=== PATIENT | female | born 1980 | race African-American/Black ===

== ENCOUNTER 2019-02-04 02:14 | Emergency (ER) | payer MEDICAID ==
[~2019-02-04] VITALS: Ht 170.2 cm; Wt 79.5 kg
[~2019-02-04 02:14] MED LIST: NO HOME MEDICATIONS; PERCOCET
[2019-02-04 02:20] VITALS: TEMP 97.7
[2019-02-04] MEDS ORDERED: LANTUS100 U/ML SQ (02:56)
[2019-02-04] MEDS ORDERED: NOVOLOG FLEX100 U/ML SQ (02:58)
[2019-02-04 03:54] LABS: GRAN # 5.4 (1.4-6.5); GRAN % 86.2 % (42.2-75.2); HEMOGLOBIN 11.3 g/dl (12.5-16.0); LYMPH # 0.7 (1.2-3.4); LYMPH % 11.3 % (20.0-51.0); MEAN CELL VOLUME 77 fl (80.0-100.0); MEAN CORPUSCULAR HEMOGLOBIN 25 pg (27.0-31.0); MEAN CORPUSCULAR HGB CONC 32 g/dl (33.0-37.0); MEAN PLATELET VOLUME 10.6 fl (7.4-10.4); MONO # 0.1 (0.1-0.6); MONO % 2.3 % (1.7-9.3); PLATELET COUNT 253 K/mm3 (130-400); RED BLOOD COUNT 4.55 M/mm3 (4.10-5.30); REDCELL DISTRIBUTION WIDTH-CV 17.2 % (11.5-14.5)
[2019-02-04 03:55] LABS: HEMATOCRIT 34.9 % (37.0-47.0)
[2019-02-04 04:01] LABS: ALANINE AMINOTRANSFERASE 6 U/L (9-52); ALBUMIN 4.4 gm/dL (3.5-5.0); ALKALINE PHOSPHATASE 77 U/L (50-136); ANION GAP 9 mmol/L (7-16); AST,SGOT 28 U/L (15-37); BILIRUBIN,TOTAL 0.5 mg/dL (0.0-1.0); BLOOD UREA NITROGEN 4 mg/dL (7-17); C-REACTIVE PROTEIN 0.9 mg/dL (0.0-0.9); CALCIUM 9.2 mg/dL (8.4-10.2); CARBON DIOXIDE 24 mmol/L (22-30); CHLORIDE 106 mmol/L (98-107); CREATININE, serum 0.57 (0.52-1.25); GLUCOSE 280 mg/dL (74-106); LIPASE 14 U/L (23-300); POTASSIUM 4.5 mmol/L (3.4-5.0); SODIUM 139 mmol/L (137-145)
[2019-02-04 04:02] LABS: ACETONE,SERUM NEGATIVE
[2019-02-04 05:31] LABS: COLLECTION METHOD CLEAN CATCH
[2019-02-04 06:20] LABS: MUCOUS Present /lpf; PH 5 (5-8); SQUAMOUS EPITHELIAL 0-2 /hpf; URINE APPEARANCE Clear; URINE BACTERIA None Seen /hpf; URINE BILIRUBIN Negative (NEGATIVE); URINE BLOOD 2+ (NEGATIVE); URINE COLOR Yellow; URINE GLUCOSE 3+ (NEGATIVE); URINE KETONE 2+ (NEGATIVE); URINE LEUKOCYTE ESTERASE Trace (NEGATIVE); URINE NITRATE Negative (NEGATIVE); URINE PROTEIN(semi-quant) Negative (NEGATIVE); URINE UROBILINOGEN Negative (NEGATIVE)
[2019-02-04] MEDS ORDERED: NORCO 325 MG-51 TAB PO (06:53)
[2019-02-04] MEDS ORDERED: CEFTIN500 MG PO (06:53)
[2019-02-04] MEDS ORDERED: ZOFRAN ODT4 MG PO (06:53)
[2019-02-04 08:15] VITALS: BP 122/81; PULSE 62
[2019-02-05] MEDS ORDERED: LEVAQUIN 750MG750 M1 PO (16:17)
[2019-02-06] VITALS (307 sets, daily range): O2SAT 68–100
[2019-02-07] VITALS (616 sets, daily range): O2SAT 90–100
[2019-02-08] MEDS ORDERED: LIPITOR 40MG TA40 MG PO (09:20)
[2019-02-08] MEDS ORDERED: LEVAQUIN 750MG750 M1 PO (09:22)
== END 2019-02-04 08:15 | disposition home or self-care (01) ==
LOC: COL.ER 02:14
PROVIDERS: Emergency Medicine
DX: N20.0 Calculus of kidney (principal); E11.9 Type 2 diabetes mellitus without complications; N39.0 Urinary tract infection, site not specified; Z79.4 Long term (current) use of insulin
CPT/HCPCS: A4216; J0696; J1170; J2405; J2550; J7030; Q9967

== ENCOUNTER 2019-02-10 05:44 | Emergency (ER) | payer MEDICAID ==
[~2019-02-10] VITALS: Ht 170.2 cm; Wt 77.3 kg
[~2019-02-10 05:44] MED LIST changes: +CEFTIN500 MG PO; +LANTUS100 U/ML SQ; +LEVAQUIN 750MG750 M1 PO; +LIPITOR 40MG TA40 MG PO; +NORCO 325 MG-51 TAB PO; +NOVOLOG FLEX100 U/ML SQ; +ZOFRAN ODT4 MG PO
[2019-02-10 06:21] LABS: BASO % 0.2 % (0.0-2.0); GRAN % 44.5 % (42.2-75.2); HEMOGLOBIN 11.8 g/dl (12.5-16.0); LYMPH # 1.9 (1.2-3.4); LYMPH % 41.5 % (20.0-51.0); MEAN CELL VOLUME 75 fl (80.0-100.0); MEAN CORPUSCULAR HEMOGLOBIN 25 pg (27.0-31.0); MEAN CORPUSCULAR HGB CONC 33 g/dl (33.0-37.0); MEAN PLATELET VOLUME 10.7 fl (7.4-10.4); MONO # 0.6 (0.1-0.6); MONO % 13.6 % (1.7-9.3); PLATELET COUNT 274 K/mm3 (130-400); REDCELL DISTRIBUTION WIDTH-CV 17.5 % (11.5-14.5)
[2019-02-10 06:34] LABS: ACETONE,SERUM NEGATIVE; ALANINE AMINOTRANSFERASE 12 U/L (9-52); ALBUMIN 3.9 gm/dL (3.5-5.0); ALKALINE PHOSPHATASE 80 U/L (50-136); ANION GAP 11 mmol/L (7-16); AST,SGOT 17 U/L (15-37); BILIRUBIN,TOTAL 0.5 mg/dL (0.0-1.0); BLOOD UREA NITROGEN 9 mg/dL (7-17); C-REACTIVE PROTEIN 0.8 mg/dL (0.0-0.9); CARBON DIOXIDE 21 mmol/L (22-30); CHLORIDE 100 mmol/L (98-107); CREATININE, serum 0.54 (0.52-1.25); GLUCOSE 241 mg/dL (74-106); LIPASE 19 U/L (23-300); POTASSIUM 3.5 mmol/L (3.4-5.0); SODIUM 132 mmol/L (137-145); TOTAL PROTEIN 7.1 gm/dL (6.4-8.2)
[2019-02-10 06:41] LABS: COLLECTION METHOD CLEAN CATCH
[2019-02-10 06:54] LABS: MUCOUS Present /lpf; PH 5 (5-8); URINE APPEARANCE Hazy; URINE BACTERIA None Seen /hpf; URINE BILIRUBIN Negative (NEGATIVE); URINE BLOOD Negative (NEGATIVE); URINE COLOR Yellow; URINE GLUCOSE 2+ (NEGATIVE); URINE KETONE 2+ (NEGATIVE); URINE LEUKOCYTE ESTERASE Negative (NEGATIVE); URINE NITRATE Negative (NEGATIVE); URINE PROTEIN(semi-quant) 1+ (NEGATIVE); URINE RBC 0-2 /hpf; URINE UROBILINOGEN Negative (NEGATIVE)
[2019-02-10] MEDS ORDERED: PROTONIX 40MG T40 MG PO (10:32)
[2019-02-10] MEDS ORDERED: PHENERGAN 25 TA25 MG PO (10:32)
[2019-02-10] MEDS ORDERED: CARAFATE S1 GM/10 ML PO (10:32)
[2019-02-10 10:50] VITALS: BP 102/77; PULSE 66; TEMP 97.7
== END 2019-02-10 10:55 | disposition home or self-care (01) ==
LOC: COL.ER 05:44
PROVIDERS: Emergency Medicine
DX: K29.70 Gastritis, unspecified, without bleeding (principal); E11.9 Type 2 diabetes mellitus without complications; Z79.4 Long term (current) use of insulin; Z98.890 Other specified postprocedural states
CPT/HCPCS: C9113; J0780; J1170; J2405; J2550; J7030

== ENCOUNTER 2019-03-12 23:42 | Emergency (ER) | payer MEDICAID ==
[~2019-03-12] VITALS: Ht 170.2 cm; Wt 77.3 kg
[~2019-03-12 23:42] MED LIST changes: +CARAFATE S1 GM/10 ML PO; +PHENERGAN 25 TA25 MG PO; +PROTONIX 40MG T40 MG PO
[2019-03-12 23:52] VITALS: TEMP 99.1
[2019-03-13 00:09] LABS: HEMATOCRIT 38.9 % (37.0-47.0); HEMOGLOBIN 12.1 g/dl (12.5-16.0); MEAN CELL VOLUME 79 fl (80.0-100.0); MEAN CORPUSCULAR HEMOGLOBIN 24 pg (27.0-31.0); MEAN CORPUSCULAR HGB CONC 31 g/dl (33.0-37.0); MEAN PLATELET VOLUME 10.5 fl (7.4-10.4); PLATELET COUNT 353 K/mm3 (130-400); RED BLOOD COUNT 4.95 M/mm3 (4.10-5.30); REDCELL DISTRIBUTION WIDTH-CV 17.6 % (11.5-14.5)
[2019-03-13] MEDS ORDERED: TRULICITY1.5 MG/0.5 SQ (00:10)
[2019-03-13 00:35] LABS: ANISOCYTOSIS 1+; BAND 3 % (0-10); HYPOCHROMIA 1+; LYMPHOCYTE 7 % (20.0-51.0); MICROCYTOSIS 1+; NEUTROPHILS 89 % (42.0-75.2); PLATELET ESTIMATE NORMAL (NORMAL)
[2019-03-13 00:36] LABS: OVALOCYTES 1+
[2019-03-13 00:39] LABS: ALANINE AMINOTRANSFERASE < 6 U/L (9-52); ALKALINE PHOSPHATASE 98 U/L (50-136); ANION GAP 17 mmol/L (7-16); AST,SGOT 24 U/L (15-37); BILIRUBIN,TOTAL 0.6 mg/dL (0.0-1.0); BLOOD UREA NITROGEN 9 mg/dL (7-17); CARBON DIOXIDE 18 mmol/L (22-30); CHLORIDE 102 mmol/L (98-107); CREATININE, serum 0.73 (0.52-1.25); GLUCOSE 368 mg/dL (74-106); LIPASE 21 U/L (23-300); POTASSIUM 4.5 mmol/L (3.4-5.0); SODIUM 138 mmol/L (137-145); TOTAL PROTEIN 8.8 gm/dL (6.4-8.2)
[2019-03-13 00:46] LABS: COLLECTION METHOD CATHETER
[2019-03-13 00:50] LABS: PH 5 (5-8); SQUAMOUS EPITHELIAL 0-2 /hpf; URINE APPEARANCE Clear; URINE BACTERIA None Seen /hpf; URINE BILIRUBIN Negative (NEGATIVE); URINE BLOOD Negative (NEGATIVE); URINE COLOR Straw; URINE GLUCOSE 3+ (NEGATIVE); URINE KETONE 2+ (NEGATIVE); URINE LEUKOCYTE ESTERASE Negative (NEGATIVE); URINE NITRATE Negative (NEGATIVE); URINE PROTEIN(semi-quant) Negative (NEGATIVE); URINE RBC 0-2 /hpf; URINE UROBILINOGEN Negative (NEGATIVE)
[2019-03-13 02:56] VITALS: BP 136/83; PULSE 103
== END 2019-03-13 02:57 | disposition short-term general hospital (02) ==
LOC: COL.ER 23:42
PROVIDERS: Emergency Medicine
DX: E11.10 Type 2 diabetes mellitus with ketoacidosis without coma (principal); K58.9 Irritable bowel syndrome, unspecified; E78.5 Hyperlipidemia, unspecified; Z87.442 Personal history of urinary calculi; Z87.891 Personal history of nicotine dependence; Z79.4 Long term (current) use of insulin
CPT/HCPCS: J1815; J2405; J7030

== ENCOUNTER 2019-03-18 17:37 | Emergency (ER) | payer MEDICAID ==
[~2019-03-18] VITALS: Ht 170.2 cm; Wt 75.0 kg
[~2019-03-18 17:37] MED LIST changes: +TRULICITY1.5 MG/0.5 SQ
[2019-03-18 17:54] VITALS: TEMP 98.4
[2019-03-18 18:37] LABS: ALANINE AMINOTRANSFERASE 12 U/L (9-52); ALKALINE PHOSPHATASE 64 U/L (50-136); ANION GAP 13 mmol/L (7-16); AST,SGOT 17 U/L (15-37); BILIRUBIN,TOTAL 0.6 mg/dL (0.0-1.0); BLOOD UREA NITROGEN 7 mg/dL (7-17); CALCIUM 9.3 mg/dL (8.4-10.2); CARBON DIOXIDE 23 mmol/L (22-30); CHLORIDE 96 mmol/L (98-107); CREATININE, serum 0.54 (0.52-1.25); GLUCOSE 166 mg/dL (74-106); LIPASE 45 U/L (23-300); POTASSIUM 3.7 mmol/L (3.4-5.0); SODIUM 132 mmol/L (137-145)
[2019-03-18 18:42] LABS: C-REACTIVE PROTEIN < 0.5 mg/dL (0.0-0.9)
[2019-03-18 19:39] LABS: BASO % 0.3 % (0.0-2.0); EOS % 0.3 % (0-4.0); GRAN # 1.7 (1.4-6.5); GRAN % 49.2 % (42.2-75.2); HEMOGLOBIN 10.9 g/dl (12.5-16.0); LYMPH # 1.4 (1.2-3.4); MEAN CELL VOLUME 74 fl (80.0-100.0); MEAN CORPUSCULAR HEMOGLOBIN 25 pg (27.0-31.0); MEAN CORPUSCULAR HGB CONC 34 g/dl (33.0-37.0); MEAN PLATELET VOLUME 10.9 fl (7.4-10.4); MONO # 0.3 (0.1-0.6); MONO % 8.6 % (1.7-9.3); PLATELET COUNT 69 K/mm3 (130-400); RED BLOOD COUNT 4.31 M/mm3 (4.10-5.30)
[2019-03-18 19:40] LABS: HEMATOCRIT 31.9 % (37.0-47.0)
[2019-03-18] MEDS ORDERED: ZOFRAN ODT4 MG PO (20:06)
[2019-03-18] MEDS ORDERED: BENTYL 10MG10 MG/CAP PO (20:12)
[2019-03-18 20:34] VITALS: BP 125/78; PULSE 70
== END 2019-03-18 20:34 | disposition home or self-care (01) ==
LOC: COL.ER 17:37
PROVIDERS: Family Medicine
DX: G89.29 Other chronic pain (principal); R10.12 Left upper quadrant pain; E11.9 Type 2 diabetes mellitus without complications; E86.0 Dehydration; I10 Essential (primary) hypertension; K58.9 Irritable bowel syndrome, unspecified; Z79.4 Long term (current) use of insulin
CPT/HCPCS: J2405; J7030

== ENCOUNTER → 2019-06-04 | Outpatient (CLI) | payer MEDICAID ==
[~2019-06-04] MED LIST changes: +BENTYL 10MG10 MG/CAP PO
== END ==
LOC: COL.RAD 06:53
DX: E11.43 Type 2 diabetes mellitus with diabetic autonomic (poly)neuropathy (principal); K31.84 Gastroparesis
CPT/HCPCS: A9541

== ENCOUNTER 2019-07-30 23:01 | Emergency (ER) | payer MEDICAID ==
[~2019-07-30] VITALS: Ht 170.2 cm; Wt 75.0 kg
[2019-07-30 23:37] VITALS: TEMP 98
[2019-07-31 00:33] LABS: ACETONE,SERUM NEGATIVE; BASO % 0.4 % (0.0-2.0); EOS % 0.2 % (0-4.0); GRAN # 2.7 (1.4-6.5); HEMATOCRIT 35.4 % (37.0-47.0); HEMOGLOBIN 11.3 g/dl (12.5-16.0); LYMPH # 2.1 (1.2-3.4); LYMPH % 39.5 % (20.0-51.0); MEAN CELL VOLUME 79 fl (80.0-100.0); MEAN CORPUSCULAR HEMOGLOBIN 25 pg (27.0-31.0); MEAN CORPUSCULAR HGB CONC 32 g/dl (33.0-37.0); MEAN PLATELET VOLUME 9.7 fl (7.4-10.4); MONO # 0.5 (0.1-0.6); MONO % 8.7 % (1.7-9.3); PLATELET COUNT 419 K/mm3 (130-400); RED BLOOD COUNT 4.51 M/mm3 (4.10-5.30); REDCELL DISTRIBUTION WIDTH-CV 17.3 % (11.5-14.5)
[2019-07-31 00:38] LABS: ALANINE AMINOTRANSFERASE 13 U/L (4-34); ALBUMIN 4.3 gm/dL (3.5-5.0); ALKALINE PHOSPHATASE 74 U/L (50-136); ANION GAP 10 mmol/L (7-16); AST,SGOT 24 U/L (15-37); BILIRUBIN,TOTAL 0.4 mg/dL (0.0-1.0); BLOOD UREA NITROGEN 5 mg/dL (7-17); CALCIUM 9.4 mg/dL (8.4-10.2); CARBON DIOXIDE 28 mmol/L (22-30); CHLORIDE 99 mmol/L (98-107); CREATININE, serum 0.64 (0.52-1.25); GLUCOSE 121 mg/dL (74-106); POTASSIUM 3.1 mmol/L (3.4-5.0); SODIUM 137 mmol/L (137-145); TOTAL PROTEIN 7.4 gm/dL (6.4-8.2)
[2019-07-31 00:50] LABS: COLLECTION METHOD CLEAN CATCH
[2019-07-31 00:50] LABS: MAGNESIUM 2.2 mg/dL (1.6-2.3)
[2019-07-31 00:59] LABS: MUCOUS Present /lpf; PH 6 (5-8); URINE APPEARANCE Hazy; URINE BACTERIA None Seen /hpf; URINE BILIRUBIN Negative (NEGATIVE); URINE BLOOD Negative (NEGATIVE); URINE COLOR Yellow; URINE GLUCOSE Negative (NEGATIVE); URINE KETONE Trace (NEGATIVE); URINE LEUKOCYTE ESTERASE Trace (NEGATIVE); URINE NITRATE Negative (NEGATIVE); URINE PROTEIN(semi-quant) 1+ (NEGATIVE); URINE UROBILINOGEN >=4.0 mg/dL (NEGATIVE)
[2019-07-31] MEDS ORDERED: PHENERGAN 25 TA25 MG PO (03:57)
[2019-07-31] MEDS ORDERED: ZOFRAN ODT4 MG PO (03:57)
[2019-07-31] MEDS ORDERED: CEFTIN500 MG PO (03:58)
[2019-07-31] MEDS ORDERED: PROTONIX 40MG T40 MG PO (03:58)
[2019-07-31 04:16] VITALS: PULSE 85
== END 2019-07-31 04:16 | disposition home or self-care (01) ==
LOC: COL.ER 23:01
PROVIDERS: Emergency Medicine
DX: E87.6 Hypokalemia (principal); N39.0 Urinary tract infection, site not specified; E10.9 Type 1 diabetes mellitus without complications
CPT/HCPCS: A4216; J0696; J0780; J2405; J3480; J7030

== ENCOUNTER 2019-08-21 21:00 | Emergency (ER) | payer MEDICAID ==
[~2019-08-21] VITALS: Ht 170.2 cm; Wt 63.6 kg
[2019-08-21 21:05] VITALS: BP 119/82; TEMP 98.6
[2019-08-21 21:55] LABS: BASO % 0.2 % (0.0-2.0); EOS % 0.3 % (0-4.0); GRAN # 3.2 (1.4-6.5); GRAN % 50.5 % (42.2-75.2); HEMATOCRIT 37.5 % (37.0-47.0); HEMOGLOBIN 12.2 g/dl (12.5-16.0); LYMPH # 2.4 (1.2-3.4); LYMPH % 38.1 % (20.0-51.0); MEAN CELL VOLUME 76 fl (80.0-100.0); MEAN CORPUSCULAR HEMOGLOBIN 25 pg (27.0-31.0); MEAN CORPUSCULAR HGB CONC 33 g/dl (33.0-37.0); MEAN PLATELET VOLUME 10.8 fl (7.4-10.4); MONO # 0.7 (0.1-0.6); MONO % 10.7 % (1.7-9.3); PLATELET COUNT 271 K/mm3 (130-400); RED BLOOD COUNT 4.97 M/mm3 (4.10-5.30); REDCELL DISTRIBUTION WIDTH-CV 17.2 % (11.5-14.5)
[2019-08-21 22:03] LABS: ALANINE AMINOTRANSFERASE 10 U/L (4-34); ALBUMIN 4.8 gm/dL (3.5-5.0); ALKALINE PHOSPHATASE 72 U/L (50-136); ANION GAP 13 mmol/L (7-16); AST,SGOT 19 U/L (15-37); BILIRUBIN,TOTAL 0.6 mg/dL (0.0-1.0); BLOOD UREA NITROGEN 8 mg/dL (7-17); CALCIUM 10.2 mg/dL (8.4-10.2); CARBON DIOXIDE 23 mmol/L (22-30); CHLORIDE 95 mmol/L (98-107); CREATININE, serum 0.73 (0.52-1.25); GLUCOSE 214 mg/dL (74-106); LIPASE 22 U/L (23-300); POTASSIUM 3.9 mmol/L (3.4-5.0); SODIUM 131 mmol/L (137-145); TOTAL PROTEIN 8.3 gm/dL (6.4-8.2)
[2019-08-21 22:10] LABS: ACETONE,SERUM MODERATE
[2019-08-22 00:32] LABS: COLLECTION METHOD CLEAN CATCH
[2019-08-22 00:39] LABS: MUCOUS Present /lpf; PH 6 (5-8); SQUAMOUS EPITHELIAL 0-2 /hpf; URINE APPEARANCE Clear; URINE BACTERIA Rare /hpf; URINE BILIRUBIN Negative (NEGATIVE); URINE BLOOD 2+ (NEGATIVE); URINE COLOR Yellow; URINE GLUCOSE Negative (NEGATIVE); URINE KETONE 2+ (NEGATIVE); URINE LEUKOCYTE ESTERASE Negative (NEGATIVE); URINE NITRATE Negative (NEGATIVE); URINE PROTEIN(semi-quant) 1+ (NEGATIVE); URINE RBC >50 /hpf; URINE UROBILINOGEN Negative (NEGATIVE)
[2019-08-22] MEDS ORDERED: PHENERGAN 25 TA25 MG PO (01:13)
[2019-08-22] MEDS ORDERED: ZOFRAN 4MG T4 MG/TAB PO (01:13)
[2019-08-22 01:41] VITALS: PULSE 89
== END 2019-08-22 01:41 | disposition home or self-care (01) ==
LOC: COL.ER 21:00
PROVIDERS: Emergency Medicine
DX: E88.89 Other specified metabolic disorders (principal); R11.2 Nausea with vomiting, unspecified; G89.29 Other chronic pain; R10.13 Epigastric pain; R10.12 Left upper quadrant pain; E10.9 Type 1 diabetes mellitus without complications
CPT/HCPCS: J2405; J2550; J7030; Q9967

== ENCOUNTER → 2019-09-02 | Outpatient (CLI) | payer MEDICAID ==
[~2019-09-02] MED LIST changes: +ZOFRAN 4MG T4 MG/TAB PO
== END ==
LOC: COL.RAD 09:39
DX: Z01.89 Encounter for other specified special examinations (principal); R19.00 Intra-abdominal and pelvic swelling, mass and lump, unspecified site

== ENCOUNTER → 2019-11-26 | Emergency (ER) | payer MEDICAID ==
[~2019-11-26] VITALS: Ht 167.6 cm; Wt 70.5 kg
[~2019-11-26] MED LIST changes: +ILOTYCIN5 MG/GM OD; +ZOFRAN8 MG PO
[2019-11-26 09:22] VITALS: BP 126/86; TEMP 98.5
[2019-11-26 10:38] LABS: BASO % 0.3 % (0.0-2.0); EOS # 0.1 (0.0-0.7); EOS % 2.1 % (0-4.0); GRAN # 3.2 (1.4-6.5); GRAN % 51.9 % (42.2-75.2); HEMATOCRIT 41.1 % (37.0-47.0); HEMOGLOBIN 13.1 g/dl (12.5-16.0); LYMPH # 2.3 (1.2-3.4); MEAN CELL VOLUME 80 fl (80.0-100.0); MEAN CORPUSCULAR HEMOGLOBIN 25 pg (27.0-31.0); MEAN CORPUSCULAR HGB CONC 32 g/dl (33.0-37.0); MEAN PLATELET VOLUME 9.9 fl (7.4-10.4); MONO # 0.5 (0.1-0.6); MONO % 8.4 % (1.7-9.3); PLATELET COUNT 362 K/mm3 (130-400); RED BLOOD COUNT 5.16 M/mm3 (4.10-5.30); REDCELL DISTRIBUTION WIDTH-CV 16.2 % (11.5-14.5)
[2019-11-26 11:56] LABS: ALANINE AMINOTRANSFERASE 13 U/L (4-34); ALBUMIN 4.4 gm/dL (3.5-5.0); ALKALINE PHOSPHATASE 76 U/L (50-136); ANION GAP 7 mmol/L (7-16); AST,SGOT 32 U/L (15-37); BILIRUBIN,TOTAL 0.7 mg/dL (0.0-1.0); BLOOD UREA NITROGEN 11 mg/dL (7-17); CALCIUM 9.4 mg/dL (8.4-10.2); CARBON DIOXIDE 34 mmol/L (22-30); CHLORIDE 93 mmol/L (98-107); CREATININE, serum 0.83 (0.52-1.25); LIPASE 21 U/L (23-300); POTASSIUM 3.5 mmol/L (3.4-5.0); SODIUM 135 mmol/L (137-145); TOTAL PROTEIN 8.2 gm/dL (6.4-8.2)
[2019-11-26 11:59] LABS: ACETONE,SERUM NEGATIVE
[2019-11-26 12:17] LABS: GLUCOSE 145 mg/dL (74-106)
[2019-11-26 12:58] LABS: COLLECTION METHOD CLEAN CATCH
[2019-11-26 13:09] LABS: AMORPHOUS CRYSTAL Present /uL; MUCOUS Present /lpf; PH 7 (5-8); URINE APPEARANCE Cloudy; URINE BACTERIA None Seen /hpf; URINE BILIRUBIN Negative (NEGATIVE); URINE BLOOD Negative (NEGATIVE); URINE COLOR Yellow; URINE GLUCOSE Negative (NEGATIVE); URINE KETONE 1+ (NEGATIVE); URINE LEUKOCYTE ESTERASE Trace (NEGATIVE); URINE NITRATE Negative (NEGATIVE); URINE PROTEIN(semi-quant) 1+ (NEGATIVE); URINE RBC 0-2 /hpf
[2019-11-26 13:46] VITALS: PULSE 75
== END ==
LOC: COL.ER 09:11
PROVIDERS: Emergency Medicine; Physician Assistant
DX: K52.9 Noninfective gastroenteritis and colitis, unspecified (principal); E10.8 Type 1 diabetes mellitus with unspecified complications
CPT/HCPCS: J2550; J7030

== ENCOUNTER 2020-01-10 21:49 | Emergency (ER) | payer MEDICAID ==
[~2020-01-10] VITALS: Ht 167.6 cm; Wt 56.8 kg
[2020-01-10 22:06] VITALS: BP 112/80; TEMP 98.8
[2020-01-10 23:07] LABS: BASO % 0.5 % (0.0-2.0); EOS % 0.5 % (0-4.0); GRAN # 1.3 (1.4-6.5); GRAN % 33.6 % (42.2-75.2); HEMATOCRIT 37.8 % (37.0-47.0); HEMOGLOBIN 12.5 g/dl (12.5-16.0); LYMPH # 2.2 (1.2-3.4); LYMPH % 55.2 % (20.0-51.0); MEAN CELL VOLUME 78 fl (80.0-100.0); MEAN CORPUSCULAR HEMOGLOBIN 26 pg (27.0-31.0); MEAN CORPUSCULAR HGB CONC 33 g/dl (33.0-37.0); MEAN PLATELET VOLUME 11.8 fl (7.4-10.4); MONO # 0.4 (0.1-0.6); MONO % 9.9 % (1.7-9.3); PLATELET COUNT 249 K/mm3 (130-400); RED BLOOD COUNT 4.87 M/mm3 (4.10-5.30); REDCELL DISTRIBUTION WIDTH-CV 16.7 % (11.5-14.5)
[2020-01-10 23:07] LABS: COLLECTION METHOD CLEAN CATCH
[2020-01-10 23:18] LABS: PH 5 (5-8); URINE APPEARANCE Clear; URINE BACTERIA None Seen /hpf; URINE BILIRUBIN Negative (NEGATIVE); URINE BLOOD Negative (NEGATIVE); URINE COLOR Yellow; URINE GLUCOSE 3+ (NEGATIVE); URINE KETONE 2+ (NEGATIVE); URINE LEUKOCYTE ESTERASE Negative (NEGATIVE); URINE NITRATE Negative (NEGATIVE); URINE PROTEIN(semi-quant) Negative (NEGATIVE); URINE RBC 0-2 /hpf; URINE UROBILINOGEN Negative (NEGATIVE)
[2020-01-11 00:08] LABS: ALANINE AMINOTRANSFERASE 15 U/L (4-34); ALBUMIN 4.1 gm/dL (3.5-5.0); ALKALINE PHOSPHATASE 56 U/L (50-136); ANION GAP 15 mmol/L (7-16); AST,SGOT 18 U/L (15-37); BILIRUBIN,TOTAL 0.5 mg/dL (0.0-1.0); BLOOD UREA NITROGEN 5 mg/dL (7-17); CALCIUM 8.8 mg/dL (8.4-10.2); CARBON DIOXIDE 24 mmol/L (22-30); CHLORIDE 95 mmol/L (98-107); CREATININE, serum 0.66 (0.52-1.25); GLUCOSE 389 mg/dL (74-106); LIPASE 35 U/L (23-300); POTASSIUM 3.6 mmol/L (3.4-5.0); SODIUM 134 mmol/L (137-145); TOTAL PROTEIN 6.7 gm/dL (6.4-8.2)
[2020-01-11 00:10] LABS: C-REACTIVE PROTEIN < 0.5 mg/dL (0.0-0.9)
[2020-01-11 00:17] LABS: TROPONIN-I < 0.012 ng/mL (0.000-0.035)
[2020-01-11] MEDS ORDERED: PHENERGAN 25 TA25 MG PO (04:08)
[2020-01-11 05:13] VITALS: PULSE 80
== END 2020-01-11 05:13 | disposition home or self-care (01) ==
LOC: COL.ER 21:49
PROVIDERS: Emergency Medicine
DX: R10.32 Left lower quadrant pain (principal); R11.2 Nausea with vomiting, unspecified; E10.65 Type 1 diabetes mellitus with hyperglycemia; Z32.02 Encounter for pregnancy test, result negative; Z79.4 Long term (current) use of insulin
CPT/HCPCS: J1815; J2405; J3010; J7030; Q9967

== ENCOUNTER 2021-04-29 22:07 | Emergency (ER) | payer OTHER ==
[~2021-04-29] VITALS: Ht 172.7 cm; Wt 72.7 kg
[2021-04-29 22:36] VITALS: TEMP 98.1
[2021-04-29 23:38] LABS: COLLECTION METHOD CLEAN CATCH
[2021-04-29 23:41] LABS: BASO % 0.3 % (0.0-2.0); GRAN % 76.8 % (42.2-75.2); HEMATOCRIT 39.7 % (37.0-47.0); HEMOGLOBIN 13.1 g/dl (12.5-16.0); LYMPH # 0.8 K/mm3 (1.2-3.4); LYMPH % 20.1 % (20.0-51.0); MEAN CELL VOLUME 79 fl (80.0-100.0); MEAN CORPUSCULAR HEMOGLOBIN 26 pg (27-31); MEAN CORPUSCULAR HGB CONC 33 g/dl (33.0-37.0); MEAN PLATELET VOLUME 9.4 fl (7.4-10.4); MONO # 0.1 K/mm3 (0.1-0.6); MONO % 2.5 % (1.7-9.3); PLATELET COUNT 233 K/mm3 (130-400); RED BLOOD COUNT 5.04 M/mm3 (4.10-5.30); REDCELL DISTRIBUTION WIDTH-CV 14.4 % (11.5-14.5)
[2021-04-29 23:46] LABS: MUCOUS Present (NOT PRESENT); PH 5 (5-8); SQUAMOUS EPITHELIAL 0-2 /hpf (0-10); URINE APPEARANCE Hazy (CLEAR/HAZY); URINE BACTERIA Rare /hpf (NONE SEEN); URINE BILIRUBIN Negative (NEGATIVE); URINE BLOOD Negative (NEGATIVE); URINE COLOR Yellow (YELLOW); URINE GLUCOSE 3+ (NEGATIVE); URINE KETONE 2+ (NEGATIVE); URINE LEUKOCYTE ESTERASE Negative (NEGATIVE); URINE NITRATE Negative (NEGATIVE); URINE PROTEIN(semi-quant) 1+ (NEGATIVE); URINE RBC 20-50 /hpf (0-2); URINE UROBILINOGEN Negative (NEGATIVE)
[2021-04-29 23:53] LABS: ACETONE,SERUM NEGATIVE
[2021-04-29 23:59] LABS: ALANINE AMINOTRANSFERASE 28 U/L (0-55); ALBUMIN 4.1 gm/dL (3.5-5.0); ALKALINE PHOSPHATASE 59 U/L (40-150); ANION GAP 16 mmol/L (7-16); AST,SGOT 32 U/L (5-34); BILIRUBIN,TOTAL 0.3 mg/dL (0.2-1.2); BLOOD UREA NITROGEN 9 mg/dL (7-19); C-REACTIVE PROTEIN 0.36 mg/dL (0.00-0.50); CALCIUM 8.9 mg/dL (8.4-10.2); CARBON DIOXIDE 19 mmol/L (22-29); CHLORIDE 103 mmol/L (98-107); GLUCOSE 183 mg/dL (70-99); POTASSIUM 3.7 mmol/L (3.5-4.5); SODIUM 138 mmol/L (136-145); TOTAL PROTEIN 7.8 gm/dL (6.2-8.1)
[2021-04-30 00:03] LABS: LIPASE < 4 U/L (8-78)
[2021-04-30] MEDS ORDERED: PHENERGAN 25 TA25 MG PO (01:32)
[2021-04-30] MEDS ORDERED: CEPHALEXIN500 M1 PO (01:53)
[2021-04-30 01:57] VITALS: BP 131/96; PULSE 63
== END 2021-04-30 01:57 | disposition home or self-care (01) ==
LOC: COL.ER 22:07
PROVIDERS: Nurse Practitioner
DX: O98.511 Other viral diseases complicating pregnancy, first trimester (principal); U07.1 COVID-19; O24.011 Pre-existing type 1 diabetes mellitus, in pregnancy, first trimester; E10.9 Type 1 diabetes mellitus without complications; O21.9 Vomiting of pregnancy, unspecified; O23.41 Unspecified infection of urinary tract in pregnancy, first trimester; Z3A.00 Weeks of gestation of pregnancy not specified; Z79.4 Long term (current) use of insulin
CPT/HCPCS: J2550; J7030

== ENCOUNTER 2021-05-14 11:33 | Emergency (ER) | payer OTHER ==
[~2021-05-14] VITALS: Ht 170.2 cm; Wt 72.7 kg
[~2021-05-14 11:33] MED LIST changes: +CEPHALEXIN500 M1 PO
[2021-05-14 12:06] VITALS: TEMP 98.9
[2021-05-14 13:52] LABS: BASO % 0.3 % (0.0-2.0); EOS % 0.1 % (0.0-4.0); GRAN # 4.3 K/mm3 (1.4-6.5); GRAN % 55.8 % (42.2-75.2); HEMOGLOBIN 12.3 g/dl (12.5-16.0); LYMPH # 2.5 K/mm3 (1.2-3.4); LYMPH % 31.9 % (20.0-51.0); MEAN CELL VOLUME 79 fl (80.0-100.0); MEAN CORPUSCULAR HEMOGLOBIN 26 pg (27-31); MEAN CORPUSCULAR HGB CONC 33 g/dl (33.0-37.0); MEAN PLATELET VOLUME 9.9 fl (7.4-10.4); MONO # 0.9 K/mm3 (0.1-0.6); MONO % 11.5 % (1.7-9.3); PLATELET COUNT 302 K/mm3 (130-400); RED BLOOD COUNT 4.68 M/mm3 (4.10-5.30); REDCELL DISTRIBUTION WIDTH-CV 15.1 % (11.5-14.5)
[2021-05-14 13:56] LABS: HEMATOCRIT 36.8 % (37.0-47.0)
[2021-05-14 14:04] LABS: ACETONE,SERUM NEGATIVE
[2021-05-14 14:10] LABS: ALANINE AMINOTRANSFERASE 6 U/L (0-55); ALBUMIN 3.5 gm/dL (3.5-5.0); ALKALINE PHOSPHATASE 47 U/L (40-150); ANION GAP 12 mmol/L (7-16); AST,SGOT 12 U/L (5-34); BILIRUBIN,TOTAL 0.8 mg/dL (0.2-1.2); BLOOD UREA NITROGEN 5 mg/dL (7-19); CALCIUM 8.7 mg/dL (8.4-10.2); CARBON DIOXIDE 22 mmol/L (22-29); CHLORIDE 101 mmol/L (98-107); CREATININE, serum 0.73 mg/dL (0.57-1.11); GLUCOSE 75 mg/dL (70-99); POTASSIUM 3.3 mmol/L (3.5-4.5); SODIUM 135 mmol/L (136-145); TOTAL PROTEIN 6.7 gm/dL (6.2-8.1)
[2021-05-14 14:11] LABS: LIPASE < 4 U/L (8-78)
[2021-05-14 15:24] LABS: COLLECTION METHOD CLEAN CATCH
[2021-05-14 15:35] LABS: MUCOUS Present (NOT PRESENT); PH 5 (5-8); SQUAMOUS EPITHELIAL 0-2 /hpf (0-10); URINE APPEARANCE Hazy (CLEAR/HAZY); URINE BACTERIA None Seen /hpf (NONE SEEN); URINE BILIRUBIN Negative (NEGATIVE); URINE BLOOD Negative (NEGATIVE); URINE COLOR Yellow (YELLOW); URINE GLUCOSE Negative (NEGATIVE); URINE KETONE 2+ (NEGATIVE); URINE LEUKOCYTE ESTERASE Trace (NEGATIVE); URINE NITRATE Negative (NEGATIVE); URINE PROTEIN(semi-quant) 1+ (NEGATIVE); URINE UROBILINOGEN >=4.0 (NEGATIVE)
[2021-05-14] MEDS ORDERED: REGLAN 10MG10 MG/TAB PO (15:53)
[2021-05-14] MEDS ORDERED: CEPHALEXIN500 M1 PO (15:53)
[2021-05-14 16:00] VITALS: BP 129/102; PULSE 73
== END 2021-05-14 16:40 | disposition home or self-care (01) ==
LOC: COL.ER 11:33
PROVIDERS: Emergency Medicine
DX: O23.41 Unspecified infection of urinary tract in pregnancy, first trimester (principal); N39.0 Urinary tract infection, site not specified; O24.911 Unspecified diabetes mellitus in pregnancy, first trimester; Z3A.10 10 weeks gestation of pregnancy; Z79.4 Long term (current) use of insulin
CPT/HCPCS: J3411; J7120